=== PATIENT | male | born 1990 | race Caucasian/White ===

== ENCOUNTER → 2020-09-20 | Outpatient (REF) | payer OTHER ==
[2020-09-21 11:48] LABS: BASO # 0.1 10^3/uL (0.0-0.2); EOS # 0.2 10^3/uL (0.0-0.5); EOS % 2.1 % (0.0-3.0); HEMATOCRIT 51.2 % (42.0-52.0); HEMOGLOBIN 16.7 g/dl (13.5-17.5); LYMPH # 2.1 10^3/uL (1.5-5.0); MEAN CORPUSCULAR HEMOGLOBIN 28.6 pg (27.0-33.0); MEAN CORPUSCULAR HGB CONC 32.6 g/dl (32.0-36.5); MEAN CORPUSCULAR VOLUME 87.8 fl (80.0-96.0); NEUTROPHILS # 4.7 10^3/uL (1.5-8.5); NEUTROPHILS % 58.8 % (36.0-66.0); PLATELET COUNT, AUTOMATED 234 10^3/uL (150-450); RED BLOOD COUNT 5.83 10^6/uL (4.30-6.10); WHITE BLOOD COUNT 7.9 10^3/uL (4.0-10.0)
[2020-09-21 12:34] LABS: ALBUMIN 4.4 GM/DL (3.2-5.2); ALT/SGPT 24 U/L (12-78); BILIRUBIN,TOTAL 0.3 MG/DL (0.2-1.0); BLOOD UREA NITROGEN 15 MG/DL (7-18); CALCIUM LEVEL 9.6 MG/DL (8.5-10.1); CARBON DIOXIDE LEVEL 30 MEQ/L (21-32); CHLORIDE LEVEL 106 MEQ/L (98-107); CREATININE FOR GFR 0.89 MG/DL (0.70-1.30); FREE T4 1.17 NG/DL (0.76-1.46); GLOMERULAR FILTRATION RATE > 60.0 (>60); GLUCOSE, FASTING 85 MG/DL (70-100); POTASSIUM SERUM 5.6 MEQ/L (3.5-5.1); SODIUM LEVEL 140 MEQ/L (136-145); THYROID STIMULATING HORMONE 0.707 uIU/ML (0.358-3.740); TOTAL PROTEIN 7.8 GM/DL (6.4-8.2)
== END ==
LOC: M SFHCCLAY 15:39
PROVIDERS: ATTEND Nurse Practitioner Family
DX: R45.4 Irritability and anger (principal); R41.840 Attention and concentration deficit

== ENCOUNTER → 2022-02-12 | Outpatient (REF) | payer OTHER ==
[~2022-02-12] MED LIST: FLUO-96 PO
== END ==
LOC: M SFHCCLAY 08:27
PROVIDERS: ATTEND Nurse Practitioner Family
DX: Z53.21 Procedure and treatment not carried out due to patient leaving prior to being seen by health care provider (principal)

== ENCOUNTER → 2022-02-17 | Outpatient (CLI) | payer OTHER | LOC: M LABSMTC 09:28 | PROVIDERS: ATTEND Anesthesiology | DX: Z01.812 Encounter for preprocedural laboratory examination (principal); Z20.822 Contact with and (suspected) exposure to COVID-19 ==

== ENCOUNTER 2022-02-21 09:05 | Day surgery (SDC) | payer OTHER ==
[~2022-02-21] VITALS: Ht 185.4 cm; Wt 101.1 kg
[~2022-02-21 09:05] MED LIST changes: +LIDOCAINE W/EPINEPHRINE 1% 20ML VIAL As Ordered ONE
[2022-02-21] MEDS ORDERED: LR 1,000 ML IV SCH ×2 (09:15→11:15)
[2022-02-21] MEDS ORDERED: ROCURONIUM BROMIDE 50 MG/5 ML VIAL As Ordered ONE (10:04)
[2022-02-21] MEDS ORDERED: LIDOCAINE 2% 100MG/5ML SDV (FOR ANES.) As Ordered ONE (10:05)
[2022-02-21] MEDS ORDERED: MIDAZOLAM INJ 2MG/2ML VIAL (J2250 PER 1MG) As Ordered ONE (10:07)
[2022-02-21] MEDS ORDERED: fentaNYL 100 MCG/2 ML INJECTION As Ordered ONE (10:07)
[2022-02-21] MEDS ORDERED: OXYMETAZOLINE 0.05% NASAL SPRAY (AFRIN) As Ordered ONE (10:50)
[2022-02-21] MEDS ORDERED: SUGAMMADEX SODIUM 500 MG/5 ML VIAL (BRIDION) As Ordered ONE (11:01)
[2022-02-21] MEDS ORDERED: propofoL 200 MG/20 ML VIAL As Ordered ONE ×2 (11:01→11:06)
[2022-02-21] MEDS ORDERED: ONDANSETRON 4MG 2ML VIAL As Ordered ONE ×2 (11:02→11:25)
[2022-02-21] MEDS ORDERED: dexameTHASONE 4 MG/ML 1ML VIAL (J1100 PER 1MG) As Ordered ONE (11:02)
[2022-02-21] MEDS ORDERED: KETOROLAC 60MG 2ML VIAL As Ordered ONE (11:02)
[2022-02-21] MEDS ORDERED: METOCLOPRAMIDE INJ 10MG/2ML VIAL (J2765 PER 1) IV PRN (11:15)
[2022-02-21] MEDS ORDERED: oxyCODONE 5MG TAB PO PRN (11:15)
[2022-02-21] MEDS ORDERED: MEPERIDINE INJ 25 MG/ML VIAL (J2175) IV PRN (11:15)
[2022-02-21] MEDS ORDERED: ONDANSETRON 4MG 2ML VIAL IV PRN (11:15)
[2022-02-21] MEDS ORDERED: fentaNYL 100 MCG/2 ML INJECTION IV PRN (11:15)
[2022-02-21 11:55] VITALS: BP 119/56
== END 2022-02-21 12:22 | disposition home or self-care (01) ==
LOC: M SDC 09:05
PROVIDERS: ATTEND Dentist Oral and Maxillofacial Surgery
DX: K02.9 Dental caries, unspecified (principal); F32.A Depression, unspecified; Z79.899 Other long term (current) drug therapy; F12.10 Cannabis abuse, uncomplicated
CPT/HCPCS: 88300; D7210; D9223; J1100; J1885; J2250; J2405; J3010

== ENCOUNTER 2022-06-26 16:34 | Emergency (ER) | payer OTHER ==
[~2022-06-26] VITALS: Ht 185.4 cm; Wt 92.7 kg
[2022-06-26] MEDS ORDERED: ISOVUE-370 76% 100ML VIAL As Ordered ONE (18:37)
[2022-06-26 18:54] LABS: HEMATOCRIT 43.8 % (42.0-52.0); HEMOGLOBIN 14.4 g/dl (13.5-17.5); MEAN CORPUSCULAR HEMOGLOBIN 28.6 pg (27.0-33.0); MEAN CORPUSCULAR HGB CONC 32.9 g/dl (32.0-36.5); MEAN CORPUSCULAR VOLUME 87.1 fl (80.0-96.0); PLATELET COUNT, AUTOMATED 202 10^3/uL (150-450); RED BLOOD COUNT 5.03 10^6/uL (4.30-6.10); WHITE BLOOD COUNT 6.7 10^3/uL (4.0-10.0)
[2022-06-26 20:12] VITALS: BP 123/65
== END 2022-06-26 20:13 | disposition home or self-care (01) ==
LOC: M ED 16:34
DX: S30.1XXA Contusion of abdominal wall, initial encounter (principal); W01.0XXA Fall on same level from slipping, tripping and stumbling without subsequent striking against object, initial encounter; W22.8XXA Striking against or struck by other objects, initial encounter; F33.1 Major depressive disorder, recurrent, moderate; Z88.8 Allergy status to other drugs, medicaments and biological substances; Y92.009 Unspecified place in unspecified non-institutional (private) residence as the place of occurrence of the external cause; Y93.H1 Activity, digging, shoveling and raking; Y99.9 Unspecified external cause status; Z79.891 Long term (current) use of opiate analgesic

== ENCOUNTER → 2022-06-26 | Outpatient (CLI) | payer OTHER ==
[~2022-06-26] MED LIST changes: -LIDOCAINE W/EPINEPHRINE 1% 20ML VIAL As Ordered ONE
[2022-06-26 16:01] LABS: HEMATOCRIT 45.7 % (42.0-52.0); MEAN CORPUSCULAR HEMOGLOBIN 28.7 pg (27.0-33.0); MEAN CORPUSCULAR HGB CONC 32.8 g/dl (32.0-36.5); MEAN CORPUSCULAR VOLUME 87.5 fl (80.0-96.0); PLATELET COUNT, AUTOMATED 212 10^3/uL (150-450); RED BLOOD COUNT 5.22 10^6/uL (4.30-6.10); WHITE BLOOD COUNT 6.6 10^3/uL (4.0-10.0)
[2022-06-26 16:15] LABS: LIPASE 36 U/L (12-53)
[2022-06-26 16:17] LABS: ALKALINE PHOSPHATASE 68 U/L (46-116); ALT/SGPT 30 U/L (7.0-40); AMYLASE 64 U/L (30-118); AST/SGOT 40 U/L (<34); BILIRUBIN,TOTAL 0.7 MG/DL (0.3-1.2); BLOOD UREA NITROGEN 20 MG/DL (9-23); CALCIUM LEVEL 9.3 MG/DL (8.5-10.1); CARBON DIOXIDE LEVEL 28 MMOL/L (20-31); CHLORIDE LEVEL 106 MMOL/L (98-107); CREATININE FOR GFR 0.82 MG/DL (0.70-1.30); GLOMERULAR FILTRATION RATE > 60.0 (>60); GLUCOSE, FASTING 83 MG/DL (60-100); POTASSIUM SERUM 3.9 MMOL/L (3.5-5.1); SODIUM LEVEL 142 MMOL/L (136-145); TOTAL PROTEIN 7.1 G/DL (5.7-8.2)
[2022-06-26 16:21] LABS: FREE T4 1.26 NG/DL (0.89-1.76); THYROID STIMULATING HORMONE 0.281 uIU/ML (0.55-4.78)
== END ==
LOC: M RAD 15:27
PROVIDERS: ATTEND Nurse Practitioner Adult Health
DX: R10.12 Left upper quadrant pain (principal); R19.4 Change in bowel habit

== ENCOUNTER → 2022-11-04 | Outpatient (CLI) | payer OTHER | LOC: M CLY 09:07 | PROVIDERS: ATTEND Nurse Practitioner Family | DX: M25.511 Pain in right shoulder (principal) ==